=== PATIENT | male | born 1980 | race Two or more races ===

== ENCOUNTER 2024-06-20 13:13 | Outpatient (REF) | payer MEDICAID, SELFPAY ==
--- OUTSIDE RECORDS SUMMARY | 2024-06-20 14:38 | XMS_ITS | Encounter Summary ---
Author Organization [employer] Address 75 [facility] 7 [place] [address] Care Team Providers Care Bridge Expert Name Role Phone LuzHumera vega KATHRYN Primary Care Provider [phone] Reason for Visit * Reason Onset Date Comments telephone call 06/20/2024 Encounter Details Date Type Department Care Team (Late st Contact Info) Description 06/20/2024 Telephone [facility] MEDICINE [address] [place], [place] [phone] Fabricio Ruiz MD [address] [place] [address] telephone call Social History Tobacco Use Types Packs/Day Years Used Date Smoking Tobacco: Never Passive Smoke Exposure: Never Smokeless Tobacco: Never Sex and Gender Information Value Date Recorded Sex Assigned at Male 06/20/2024 9:07 AM EDT Legal Sex Male 9:29 AM EDT Gender Identity Male 06/20/2024 9:07 AM EDT Sexual Orientation Straight 06/20/2024 9: 07 AM EDT documented as of this encounter Miscellaneous Notes * Telephone Encounter - Hayley Mccoy - 06/20/2024 10:54 AM EDT Patient added to [facility] New Patient wit list as of 06/20/24. * Telephone Encounter - Ashley Estrada - 06/20/2024 10:17 AM EDT Pt walked in requesting to become a new pt. documented in this encounter Plan of Treatment Upcoming Encounters Date Type Department Care Team (Late st Contact Info) Description 09/19/2024 9:45 AM EDT Office Visit [facility] MEDICINE [address] [place] [address] Humera Espinoza NP [address] [place] [address] documented as of this encounter Visit Diagnoses Not on filedocumented in this encounter Care Teams Bridge Expert Relationship Specialty Start Date End Date Humera Espinoza NP [address] [place] [address] PCP - General Family Medicine 06/20/24 documented as of this encounter
--- OUTSIDE RECORDS SUMMARY | 2024-06-20 14:38 | XMS_ITS | Encounter Summary ---
Author Organization [employer] Address 75 [facility] 7t [place] [address] Care Team Providers Care Deliver Driver Name Role Phone Humera Espinoza NP Primary Care Provider [phone] Reason for Referral * Imaging (Routine) - Authorized Specialty Diagnoses / Procedures Referred By Contmoses t Referred To Contact Radiology Diagnoses Inguinal pain, unspecified laterality Procedures US Scrotum Humera Espinoza NP [address] [place] [address] Phone: tel: fax: [facility] [address] [place] [address] Phone: tel: fax: Referral ID Status Reason Start Date Expiration Date V isits Requested Visits Authorized [id number] Authorized 06/20/2024 06/20/2025 1 1 Reason for Visit * Reason Comments Groin Pain Encounter Details Date Type Department Care Team (Late st Contact Info) Description 06/20/2024 10:20 AM EDT Office Visit [facility] [address] [place], [place] [phone] Humera Espinoza NP [address] [place] [address] Inguinal pain, unspecified laterality (Primary Dx); Scrotal swelling; Elevated blood pressure reading Social History Tobacco Use Types Packs/Day Years Used Date Smoking Tobacco: Never Passive Smoke Exposure: Never Smokeless Tobacco: Never Tobacco Cessation:Counseling Given: Not Answered Sex and Gender Information Value Date Recorded Sex Assigned at Male 06/20/2024 9:07 AM EDT Legal Sex Male 9:29 AM EDT Gender Identity Male 06/20/2024 9:07 AM EDT Sexual Orientation Straight 06/20/2024 9: 07 AM EDT documented as of this encounter Last Filed Vital Signs Vital Sign Reading Time Taken Comments Blood Pressure 144/84 06/20/2024 10:22 AM EDT Pulse 75 06/20/2024 10:22 AM EDT Temperature 36.7 ??C (98.1 ??F) 06/20/2024 10:22 AM E DT Respiratory Rate 18 06/20/2024 10:22 AM EDT Oxygen Saturation 97% 06/20/2024 10:22 AM EDT Inhaled Oxygen Concentration - - Weight 88.9 kg (196 lb) 06/20/2024 10:22 AM EDT Height 182.9 cm (6') 06/20/2024 10:22 AM EDT Body Mass Index 26.58 06/20/2024 10:22 AM EDT documented in this encounter Progress Notes * Humera Espinoza, SCIENTIFIC DIRECTOR - 06/20/2024 10:20 AM EDT Subjective: Antonio Short is a 44 y.o. male who presents to the office for a sick visit. 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 Respiratory: Negative for apnea and chest tightness. Genitourinary: Positive for scrotal swelling and testicular pain. Negative for difficulty urinating, dysuria, penile pain and penile swelling. No Known Allergies Objective: Visit Vitals BP (!) 144/84 (BP Location: Left arm, Patient Position: Sitting, BP Cuff Size: Large adult) Pulse 75 Temp 98.1 ??F (36.7 ??C) (Temporal) Resp 18 Ht 6' (1.829 m) Wt 196 lb (88.9 kg) SpO2 97% BMI 26.58 kg/m?? Smoking Status Never BSA 2.13 m?? Physical Exam Constitutional: Appearance: Normal appearance. Cardiovascular: Rate and Rhythm: Regular rhythm. Abdominal: General: Abdomen is flat. Hernia: No hernia is present. Genitourinary: Penis: No erythema or tenderness. Testes: Left: Tenderness and swelling present. Epididymis: Left: Normal. Musculoskeletal: Cervical back: Neck supple. Neurological: Mental Status: He is alert. Assessment/Plan: Problem List Items Addressed This Visit Elevated blood pressure reading Scrotal swelling Current Assessment & Plan Suspect epididymitis or vericocele No palpable testicular masses Us ordered Gc.chl ordered Pt is able to avoid work temporarily while waiting for w/up Relevant Medications ibuprofen 600 MG tablet Inguinal pain - Primary Relevant Medications ibuprofen 600 MG tablet Other Relevant Orders US Scrotum Chlamydia/N. Gonorrhoeae RNA, TMA, Urogenitial Current Outpatient Medications Medication Sig Dispense Refill ibuprofen 600 MG tablet Take 1 tablet (600 mg) by mouth every 8 (eight) hours if needed for mild pain for up to 10 days. 30 tablet 0 No current facility-administered medications for this visit. documented in this encounter Miscellaneous Notes * Assessment & Plan Note - Humera Espinoza NP - 06/20/2024 12:24 PM EDTAssociated Problem(s): Scrotal swelling Suspect epididymitis or vericocele No palpable testicular masses Us ordered Gc.chl ordered Pt is able to avoid work temporarily while waiting for w/up documented in this encounter Plan of Treatment Upcoming Encounters Date Type Department Care Team (Late st Contact Info) Description 09/19/2024 9:45 AM EDT Office Visit [facility] MEDICINE [address] [place] [address] Humera Espinoza NP [address] [place] [address] Scheduled Orders Name Type Priority Associated Diagnoses Orde r Schedule US Scrotum Imaging Routine Inguinal pain, unspecified laterality Expected: 06/20/2024, Expires: 06/20/2025 Chlamydia/N. Gonorrhoeae RNA, TMA, Urogenitial Microbiology Routine Inguinal pain, unspecified laterality Ordered: 06/20/2024 documented as of this encounter Visit Diagnoses Diagnosis Inguinal pain, unspecified laterality- Primary Scrotal swelling Edema of male genital organs Elevated blood pressure reading Elevated blood pressure reading without diagnosis of hypertension documented in this encounter Care Teams Deliver Driver Relationship Specialty Start Date End Date Humera Espinoza NP [address] [place] [address] PCP - General Family Medicine 06/20/24 documented as of this encounter
--- OUTSIDE RECORDS SUMMARY | 2024-06-20 14:38 | XMS_ITS | Clinical Summary ---
Author Organization [employer] [facility] Address 75 [facility] 7t [place] [address] Care Team Providers Care Steel Welder Name Role Phone Humera Espinoza NP Primary Care Provider Allergies No known active allergies Medications ibuprofen 600 MG tabletIndication s:Inguinal pain, unspecified laterality,Scrot al swelling Take 1 tablet (600 mg) by mouth every 8 (eight) hours if needed for mild pain for up to 10 days. 30 tablet 06/20/2024 Active Active Problems Problem Noted Date Diagnosed Date Elevated blood pressure reading 06/20/2024 Scrotal swelling 06/20/2024 Assessment & Plan (06/20/2024 12:24 PM EDT): Suspect epididymitis or vericocele No palpable testicular masses Us ordered Gc.chl ordered Pt is able to avoid work temporarily while waiting for w/up Inguinal pain 06/20/2024 Encounters Date Type Department Care Team Description 06/20/2024 10:20 AM EDT Office Visit [facility] [address] [place] [address] Humera Espinoza NP Inguinal pain, unspecified laterality (Primary Dx); Scrotal swelling; Elevated blood pressure reading 06/20/2024 Telephone [facility] MEDICINE [address] [place] [address] Fabricio Ruiz MD telephone call 04/29/2024 Population Health Risk Score [facility] (C3) Department [address] [phone] Provider, Population Health Generic from Last 3 Months Social History Tobacco Use Types Packs/Day Years Used Date Smoking Tobacco: Never Passive Smoke Exposure: Never Smokeless Tobacco: Never Tobacco Cessation:Counseling Given: Not Answered Sex and Gender Information Value Date Recorded Sex Assigned at Male 06/20/2024 9:07 AM EDT Legal Sex Male 9:29 AM EDT Gender Identity Male 06/20/2024 9:07 AM EDT Sexual Orientation Straight 06/20/2024 9: 07 AM EDT Last Filed Vital Signs Vital Sign Reading [...] Mass Index 26.58 06/20/2024 10:22 AM EDT Plan of Treatment Upcoming Encounters Date Type Department Care Team (Late st Contact Info) Description 09/19/2024 9:45 AM EDT Office Visit [facility] MEDICINE [address] [place] [address] Humera Espinoza NP [address] [place] [address] Health Maintenance Due Date Last Done Comments Depression Screening 1982 HIV Screening 1982 Lipid Panel 1982 SDOH Screening 1982 Alcohol/Substance Use Screening 1994 Family Planning (PISQ) 1997 Hepatitis C Screening 2000 DTaP/Tdap/Td Vaccines (1 - Tdap) 2001 Hepatitis B Vaccines (1 of 3 - 19+ 3-dose series) 2001 COVID-19 Vaccine ( - 2023-2 5 season) 2023 Influenza Vaccine (#1) 2023 Tobacco Screening 06/20/2025 06/20/2024 Zoster Vaccines (1 of 2) 2032 RSV Patients and Pa tients Aged 60 years or older (1 - 1-dose 75+ series) 2057 HIB Vaccines Aged Out No longer eligi ble based on patient's age to complete this topic HPV Vaccines Aged Out No longer eligi ble based on patient's age to complete this topic Hepatitis A Vaccines Aged Out No long er eligible based on patient's age to complete this topic IPV Vaccines Aged Out No longer eligi ble based on patient's age to complete this topic Meningococcal Vaccine Aged Out No ky corey eligible based on patient's age to complete this topic Pneumococcal Vaccine: Pediat rics (0 to 5 Years) and At-Risk Patients (6 to 49) Years) Aged Out No longer elig ible based on patient's age to complete this topic RSV under 20 months Aged Out No longe r eligible based on patient's age to complete this topic Rotavirus Vaccines Aged Out No longer eligible based on patient's age to complete this topic [place] [address] [place] [address] C3 Care Teams Steel Welder Relationship Specialty Start Date End Date Humera Espinoza NP [address] [place] [address] PCP - General Family Medicine 06/20/24
== END 2024-06-20 13:14 | disposition home or self-care (01) ==
LOC: HO.HHCLNP 13:13
PROVIDERS: Visit Provider Nurse Practitioner Family
DX: Z13.89 Encounter for screening for other disorder (principal)

== ENCOUNTER 2024-06-22 08:41 | Outpatient (REF) | payer MEDICAID, SELFPAY ==
--- OUTSIDE RECORDS SUMMARY | 2024-06-22 09:02 | XMS_ITS | Encounter Summary ---
Author Organization [employer] Address 75 [facility] 7t [place] [address] Care Team Providers Care Charge Rn Name Role Phone Humera Espinoza NP Primary Care Provider [phone] Reason for Referral * Imaging (Routine) - Authorized Specialty Diagnoses / Procedures Referred By Contmoses t Referred To Contact Radiology Diagnoses Inguinal pain, unspecified laterality Procedures US Scrotum Humera Espinoza NP [address] [place] [address] Phone: tel: fax: [facility] [address] [place] [address] Phone: tel: fax: Referral ID Status Reason Start Date Expiration Date V isits Requested Visits Authorized [id number] Authorized 06/20/2024 06/20/2025 1 1 Reason for Visit * Reason Comments Groin Pain Encounter Details Date Type Department Care Team (Late st Contact Info) Description 06/20/2024 10:20 AM EDT Office Visit [facility]ALK[facility] [address] [place], [place] [phone] Humera Espinoza NP [address] [place] [address] Inguinal pain, unspecified laterality (Primary Dx); Scrotal [...] this encounter Progress Notes * Humera Espinoza, BENCH ASSEMBLER [employer]LECTRICAL - 06/20/2024 10:20 AM EDT Subjective: Antonio Short is a 44 y.o. male who presents to the office for a sick visit. 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
--- OUTSIDE RECORDS SUMMARY | 2024-06-22 09:02 | XMS_ITS | Encounter Summary ---
Author Organization [employer] Address 75 [facility] 7t [place] [address] Care Team Providers Care Animal Biologist Name Role Phone LuzHumera vega KATHRYN Primary Care Provider [phone] Reason for Visit * Reason Onset Date Comments telephone call 06/20/2024 Encounter Details Date Type Department Care Team (Late st Contact Info) Description 06/20/2024 Telephone [facility] MEDICINE [address] [place], [place] [phone] Fabricio Ruiz MD [address] [place] [address] telephone call Social History Tobacco Use Types [...] 06/20/2024 10:54 AM EDT Patient added to [facility] New Patient wit list as of 06/20/24. * Telephone Encounter - Ashley Estrada - 06/20/2024 10:17 AM EDT Pt walked in requesting to become a new pt. documented in this encounter Plan of Treatment Upcoming Encounters Date Type Department Care Team (Late st Contact Info) Description 09/19/2024 9:45 AM EDT Office Visit [facility] MEDICINE [address] [place] [address] Humera Espinoza NP [address] [place] [address] documented as of this encounter Visit Diagnoses Not on filedocumented in this encounter Care Teams Animal Biologist Relationship Specialty Start Date End Date Humera Espinoza NP [address] [place] [address] PCP - General Family Medicine 06/20/24 documented as of this encounter
--- OUTSIDE RECORDS SUMMARY | 2024-06-22 09:02 | XMS_ITS | Clinical Summary ---
Author Organization [employer] [facility] Address 75 [facility] 7t [place] [address] Care Team Providers Care Associate Chief Nurse Name Role Phone Humera Espinoza NP Primary Care Provider [phone] Allergies No known active allergies Medications ibuprofen [...] Description 06/20/2024 10:20 AM EDT Office Visit [facility] [address] [place] [address] Humera Espinoza NP Inguinal pain, unspecified laterality (Primary Dx); Scrotal swelling; Elevated blood pressure reading 06/20/2024 Telephone [facility] MEDICINE [address] [place] [address] Fabricio Ruiz MD telephone call 04/29/[address] [facility] (C3) Department [address] [phone] Provider, Population Health Generic from [...] Description 09/19/2024 9:45 AM EDT Office Visit [facility] MEDICINE [address] [place] [address] Humera Espinoza NP [address] [place] [address] Health Maintenance Due Date Last Done Comments [...] patient's age to complete this topic Insurance [place] [address] C3 Care Teams Associate Chief Nurse Relationship Specialty Start Date End Date Humera Espinoza NP [address] [place] [address] PCP - General Family Medicine 06/20/24
[2024-06-22 13:54] LABS: CT PCR NOT DETECTED (Not Detect.); NG PCR NOT DETECTED (Not Detect.)
== END 2024-06-22 08:42 | disposition home or self-care (01) ==
LOC: HO.HHCL 08:41
PROVIDERS: Visit Provider Nurse Practitioner Family
DX: R10.30 Lower abdominal pain, unspecified (principal)
CPT/HCPCS: 87491; 87591

== ENCOUNTER 2024-07-20 15:18 | Outpatient (REF) | payer MEDICAID, SELFPAY ==
--- NOTE | ~2024-07-20 | US_ITS ---
CLINICAL HISTORY: swollen left tesicle after sitting US SCROTUM WITH DOPPLER Comparison: None Findings: Right testicle normal echotexture, 4.4 x 2.2 x 3.4 cm. Left testicle normal echotexture, 4.2 x 2.9 x 3.1 cm. Color Doppler and arterial/venous spectral tracings of both testicles within normal limits. Epididymides are unremarkable. Small bilateral hydroceles. No varicoceles. IMPRESSION: 1. Small bilateral hydroceles. 2. No acute testicular torsion. 3. No acute epididymo-orchitis. 4. No suspicious mass. This document has been electronically signed by: Malissa Patel DO on 07/20/2024 17:50:53
--- OUTSIDE RECORDS SUMMARY | 2024-07-20 15:29 | XMS_ITS | Clinical Summary ---
Author Organization [employer] [facility] Address [address] [facility] 7t [place] [address] Care Team Providers Care Apprise Counselor Name Role Phone Humera Espinoza NP Primary Care Provider [phone] Allergies No known active allergies Medications ibuprofen 600 MG tabletIndication s:Inguinal pain, unspecified laterality,Scrot al swelling Take 1 tablet (600 mg) by mouth every 8 (eight) hours if needed for mild pain for up to 10 days. 30 tablet 06/20/2024 07/01/19 25 Active Problems Problem Noted Date Diagnosed Date Elevated blood pressure reading 06/20/2024 Scrotal swelling 06/20/2024 Assessment & Plan (06/20/2024 12:24 PM EDT): Suspect epididymitis or vericocele No palpable testicular masses Us ordered Gc.chl ordered Pt is able to avoid work temporarily while waiting for w/up Inguinal pain 06/20/2024 Encounters Date Type Department Care Team Description 06/29/2024 Results Follow-Up [facility] MEDICINE [address] [place] [address] Joceline Galeana [place] Chlamydia/N. Gonorrhoeae RNA, TMA, Urogenitial 06/20/2024 10:20 AM EDT Office Visit [facility]ALK[facility] [address] [place] [address] Humera Espinoza NP Inguinal pain, unspecified laterality (Primary Dx); Scrotal swelling; Elevated blood pressure reading 06/20/2024 Telephone [facility] MEDICINE [address] [place] [address] Fabricio Ruiz MD telephone call 04/29/2024 Population Health Risk Score [facility] (C3) Department [address] [address] Provider, Population Health Generic from Last 3 [...] Description 09/19/2024 9:45 AM EDT Office Visit [facility] MEDICINE [address] [place] [address] Humera Espinoza NP [address] [place] [address] Health Maintenance Due Date Last Done Comments Depression Screening 1982 HIV Screening 1982 Lipid Panel 1982 SDOH Screening 1982 Disability Screening 1982 Alcohol/Substance Use Screening 1994 Family Planning (PISQ) 1997 Hepatitis C Screening 2000 DTaP/Tdap/Td Vaccines (1 - Tdap) 2001 Hepatitis B Vaccines (1 of 3 - 19+ 3-dose series) 2001 COVID-19 Vaccine (2023-2 5 season) 2023 Influenza Vaccine (Season Ended) 2024 Tobacco Screening 06/20/2025 06/20/2024 Zoster Vaccines (1 [...] patient's age to complete this topic Meningococcal B Vaccine Aged Out No l onger eligible based on patient's age to complete [...] on patient's age to complete this topic Procedures Procedure Name Priority Date/Time Associated Diagnosis Comments CHLAMYDIA/N. GONORRHOEAE RNA, TMA, UROGENITAL Routine 06/22/2024 8:44 AM EDT Inguinal pain, unspecified laterality from Last 3 Months Results * Chlamydia/N. Gonorrhoeae RNA, TMA, Urogenitial (06/22/2024 8:44 AM EDT) Pathologist [facility] CT PCR NOT DETECTED Not Detect. [facility] Comment:A not detected test result does not exclude the possibilityof infection because test results can be affected byimproper specimen collection, concurrent antibiotic therapy,or the number of organisms in the specimen which may bebelow the sensitivity of the test. As with many diagnostictests, results from the Xpert CT/NG assay should beinterpreted in conjunction with other laboratory andclinical data available to the clinician.Xpert CT/NG performance has not been evaluated in patientsless than 14 years of age. The assay should not be used forthe evaluationof suspected sexual abuse or for other medico-legalindications. Additional testing is recommended in anycircumstance when false positive or false negative resultscould lead to adverse medical, social or psychologicalconsequences. NG PCR NOT DETECTED Not Detect. [facility] Comment:A not detected test result does not exclude the possibilityof infection because test results can be affected byimproper specimen collection, concurrent antibiotic therapy,or the number of organisms in the specimen which may bebelow the sensitivity of the test. As with many diagnostictests, results from the Xpert CT/NG assay should beinterpreted in conjunction with other laboratory andclinical data available to the clinician.Xpert CT/NG performance has not been evaluated in patientsless than 14 years of age. The assay should not be used forthe evaluationof suspected sexual abuse or for other medico-legalindications. Additional testing is recommended in anycircumstance when false positive or false negative resultscould lead to adverse medical, social or psychologicalconsequences. Urine (Urine, Random) 06/22/2024 8:44 AM EDT 06/22/2024 10:53 AM EDT Narrative [facility] - 06/22/2024 1:55 PM EDT Urine us Humera Espinoza REHABILITATION CONSULTANT LAB MICROBIOLOGY - GENERAL ORDER KEEGAN Final Result [facility] [address] [place] [address] [phone] from Last 3 Months [facility] [employer] C[facility] Care Teams Apprise Counselor Relationship Specialty Start Date End Date Humera Espinoza NP [address] [place] [address] PCP - General Family Medicine 06/20/24
== END 2024-07-20 15:19 | disposition home or self-care (01) ==
LOC: HO.US 15:18
PROVIDERS: PCP Nurse Practitioner Family; Visit Provider Nurse Practitioner Family
DX: R10.30 Lower abdominal pain, unspecified (principal)
CPT/HCPCS: 76870

== ENCOUNTER → 2024-07-20 15:27 | Outpatient (BNV) | payer MEDICAID, SELFPAY | PROVIDERS: PCP Nurse Practitioner Family; Visit Provider Radiology Diagnostic Radiology | DX: N43.3 Hydrocele, unspecified (principal) | CPT/HCPCS: 76870 ==

== ENCOUNTER 2024-11-14 10:35 | Outpatient (REF) | payer MEDICAID, SELFPAY ==
--- OUTSIDE RECORDS SUMMARY | 2024-11-14 10:15 | XMS_ITS | Encounter Summary ---
Author Organization [employer] Address [address] [place] [address] Care Team Providers Care Instructional Technology Coach Name Role Phone Humera Espinoza NP Primary Care Provider [phone] Encounter Details Date Type Department Care Team (Late st Contact Info) Description 11/14/2024 10:15 AM EDT Office Visit [facility] [address] [place], [place] [phone] Humera Espinoza NP [address] [place], [place] [phone] Primary hypertension (Primary Dx) Social History Tobacco Use Types Packs/Day Years Used Date Smoking Tobacco: Never Passive Smoke Exposure: Never Smokeless Tobacco: Never Alcohol Answer Date Recorded How often do you have a drink containing alcohol ? 2 09/19/2024 How many drinks containing a lcohol do you have on a typical day when you are drinking? 1 09/19/2024 Frequency of Binge Drinking Not on file 05/2024 Depression Answer Date Recorded Patient Health Questionnaire-9 Score 0 09/19/2024 Patient Health Questionnaire-9 Score 0 09/19/2024 Last PHQ-9: Questionnaire Data Not on file 0 09/19/2024 Housing Stability Answer Date Recorded What is your housing situation today? I do not have housing (Staying with others, in a hotel, in a intermediate, living outside on the street, on a beach, in a car, or in a park 09/19/[address] you li ve. Do you have problems with any of the following? None of the above 09/19/2024 Food Insecurity Answer Date Recorded Within the past 12 months, y ou worried that your food would run out before you got money to buy more: Sometimes True 2024 Within the past 12 months,th e food you bought just didn't last and you didn't have enough money to get more: Sometimes True 09/19/2024 Transportation Answer Date Recorded In the past 12 months, has l ack of transportation kept you from medical appts, meetings, work or from getting things needed for daily living? No 09/19/2024 Utilities Answer Date Recorded In the past 12 months, has t he electric, gas, oil or water company threatened to shut off services in your home? No 09/19/2024 Depression Answer Date Recorded Patient Health Questionnaire-2 Score 0 09/19/2024 Internet Access Answer Date Recorded Internet Access Q1 I am not sure 09/19/2024 Internet Access Q2 Not on file 09/19/2024 Sex and Gender Information Value Date Recorded Sex Assigned at Male 06/20/2024 9:07 AM EDT Legal Sex Male 9:29 AM EDT Gender Identity Male 06/20/2024 9:07 AM EDT Sexual Orientation Straight 06/20/2024 9: 07 AM EDT documented as of this encounter Last Filed Vital Signs Vital Sign Reading Time Taken Comments Blood Pressure 140/86 11/14/2024 10:11 AM EDT Pulse 89 11/14/2024 10:11 AM EDT Temperature 36 C (96.8 F) 11/14/2024 10:11 AM EDT Respiratory Rate 16 11/14/2024 10:1 1 AM EDT Oxygen Saturation 97% 11/14/2024 10: 11 AM EDT Inhaled Oxygen Concentration - - Weight 85.6 kg (188 lb 12.8 oz) 025 10:11 AM EDT Height 180.3 cm (5' 11 ) 11/14/2024 10: 11 AM EDT Body Mass Index 26.33 11/14/2024 10:11 AM EDT documented in this encounter Miscellaneous Notes * Assessment & Plan Note - Humera Espinoza NP - 11/14/2024 10:15 AM EDTAssociated Problem(s): Primary hypertension Orders: Lipid Panel, Standard; Future Comprehensive Metabolic Panel; Future Hemoglobin A1c; Future documented in this encounter Plan of Treatment Scheduled Orders Name Type Priority Associated Diagnoses Orde r Schedule Lipid Panel, Standard Lab Routine Primary hypertension Expected: 11/14/2024 (Approximate), Expires: 11/14/2025 Comprehensive Metabolic Panel Lab Routine Primary hypertension Expected: 11/14/2024 (Approximate), Expires: 11/14/2025 documented as of this encounter Procedures Procedure Name Priority Date/Time Associated Diagnosis Comments HEMOGLOBIN A1C Routine 11/14/2024 10:38 AM EDT Primary hypertension documented in this encounter Results * Hemoglobin A1c (11/14/2024 10:38 AM EDT) Hemoglobin A1c 5.3 <6.0 % [facility] Comment:Hemoglobin A1C Refer ence Range Adults: 4.8 - 6.0 % Non diabetic: < 6.0 % Goal: < 7.0 %Additional Action Suggested: > 8.0 %Note: Hemoglobin A1c results are invalid for patients with abnormal amounts of HbF. Blood transfusions may impact the HbA1c concentration in the patient sample. Estimated Average Glucose 105 mg/dL [facility] Comment:eAG = Estimated ave rage glucose which is %A1C expressed asaverage glucose, using the formula of the J4J-IzyvjkgJmwlmov Glucose study (ADAG), Diabetes Care, Vol.31,#8,Aug. 2007 Blood Venous blood specimen / Unknown 11/14/2024 10:38 AM EDT 11/14/2024 11:13 AM EDT us Humera Espinoza NP LAB BLOOD ORDERABLES Final Resul t [facility] [address] [place] [phone] [phone] documented in this encounter Visit Diagnoses Diagnosis Primary hypertension- Primary Unspecified essential hypertension documented in this encounter Additional Health Concerns Assessment Noted Time PHQ-9 Depression Total Score: 0 09/20/19 25 10:17 AM EDT documented as of this encounter Care Teams Instructional Technology Coach Relationship Specialty Start Date End Date Humera Espinoza NP [address] [place] [address] PCP - General Family Medicine 06/20/24 documented as of this encounter
--- OUTSIDE RECORDS SUMMARY | 2024-11-14 11:52 | XMS_ITS | Encounter Summary ---
Author Organization [employer] Address [address] [facility] [address] [place] [address] Care Team Providers Care Plumber Cub Name Role Phone Humera Espinoza NP Primary Care Provider [phone] Reason for Visit * Reason Onset Date Comments chart prep 11/11/2024 Encounter Details Date Type Department Care Team (Late st Contact Info) Description 11/11/2024 Telephone [facility] [address] [place] [address] Jayne Baldwin MA chart prep Social History Tobacco Use Types Packs/Day Years [...] with others, in a hotel, in a fpc, living outside on the street, on a [...] encounter Miscellaneous Notes * Telephone Encounter - Jayne Baldwin MA - 11/11/2024 2:30 PM EDT Chart Prep Labs: done Images: done Referrals: complete Thu07/20/24 3:30 PM [facility] Vaccines due: Covid, Flu, Tdap, Hep B, Td, HPV, and DTAP Screenings: not applicable Overdue care gaps: Not applicable documented in this encounter Plan of Treatment Not on file documented as of this encounter Visit Diagnoses Not on filedocumented in this encounter Additional Health Concerns Assessment Noted Time PHQ-9 Depression Total Score: 0 09/20/19 10:17 AM EDT documented as of this encounter Care Teams Plumber Cub Relationship Specialty Start Date End Date Humera Espinoza NP [address] [place] [address] PCP - General Family Medicine 06/20/24 documented as of this encounter
--- OUTSIDE RECORDS SUMMARY | 2024-11-14 11:52 | XMS_ITS | Encounter Summary ---
Author Organization [employer] Address [address] [facility] [address] [place] [address] Care Team Providers Care Vb Net Developer Name Role Phone LuzHumera vega KATHRYN Primary Care Provider [phone] Encounter Details Date Type Department Care Team (Latest Contact Info) Description 11/14/2024 Travel Social History Tobacco Use Types Packs/Day Years [...] with others, in a hotel, in a nursing home, living outside on the street, on a [...] AM EDT documented as of this encounter Plan of Treatment Not on file documented as of this encounter Visit Diagnoses Not on filedocumented in this encounter Additional Health Concerns Assessment Noted Time PHQ-9 Depression Total Score: 0 09/20/19 10:17 AM EDT documented as of this encounter Care Teams Vb Net Developer Relationship Specialty Start Date End Date Humera Espinoza NP [address] [place] [id number] PCP - General Family Medicine 06/20/24 documented as of this encounter
--- OUTSIDE RECORDS SUMMARY | 2024-11-14 11:52 | XMS_ITS | Encounter Summary ---
Author Organization [employer] Address [address] [facility] [address] [place] [address] Care Team Providers Care Lathe Operator Contact Lens Name Role Phone LuzHumera vega KATHRYN Primary Care Provider [phone] Encounter Details Date Type Department Care Team (Latest Contact Info) Description 11/13/2024 Travel Social History Tobacco Use Types Packs/Day [...] with others, in a hotel, in a alf, living outside on the street, on a [...] documented as of this encounter Care Teams Lathe Operator Contact Lens Relationship Specialty Start Date End Date Humera Espinoza NP [address] [place] [phone] PCP - General Family Medicine 06/20/24 documented as of this encounter
--- OUTSIDE RECORDS SUMMARY | 2024-11-14 11:52 | XMS_ITS | Clinical Summary ---
Author Organization [employer] Address [address] [place] [address] Care Team Providers Care Bowling Ball Mold Assembler Name Role Phone Luzgary Humera KATHRYN Primary Care Provider [phone] Allergies No known active allergies Medications lisinopril 10 MG tablet Take 1 tablet (10 mg) by mouth Once per day. 30 tablet 3 09/19/2024 09/20/19 26 Active Blood Pressure kitIndications:Pr imary hypertension 1 kit Once per day. 1 kit 10/20/2024 Active Active Problems Problem Noted Date Diagnosed Date Healthcare maintenance 09/19/2024 Exercise counseling 09/19/2024 Dietary counseling 09/19/2024 Assessment & Plan (09/19/2024 10:18 AM EDT): Dietary Recommendations: Fruits, vegetables, whole grains, protein foods, and fat-free or low-fat dairy products are healthy choices. Eat different types of protein foods in your diet. This can include seafood, lean meats, poultry, beans, peas, lentils, nuts, seeds, soy products, and eggs. Limit foods and beverages higher in added sugars, saturated fat, and sodium. Exercise Recommendations: At least 150 minutes of moderate-intensity physical activity per week, or an equivalent combination of moderate- and vigorous-intensity activity Primary hypertension 09/19/2024 Assessment & Plan (11/14/2024 10:46 AM EDT): Orders: Lipid Panel, Standard; Future Comprehensive Metabolic Panel; Future Hemoglobin A1c; Future Assessment & Plan (09/19/2024 10:19 AM EDT): Two readings above goal and home measurements have also been elevated Initiate lisinopril 10 mg Return to clinic in 2 months for repeat bp Elevated blood pressure reading 06/20/2024 Scrotal swelling 06/20/2024 Assessment & Plan (06/20/2024 12:24 PM EDT): Suspect epididymitis or vericocele No palpable testicular masses Us ordered Gc.chl ordered Pt is able to avoid work temporarily while waiting for w/up Inguinal pain 06/20/2024 Encounters Date Type Department Care Team Description 11/14/2024 10:15 AM EDT Office Visit [address] [address] Humera Espinoza NP Primary hypertension (Primary Dx) 11/14/2024 Travel 11/13/2024 Travel 11/11/[address] [address] Jayne Baldwin MA chart prep 10/18/[address] [address] Humera Espinoza NP Medication Question 09/19/2024 9:45 AM EDT Office Visit [address] [address] Humera Espinoza NP Elevated blood pressure reading (Primary Dx); Dietary counseling; Exercise counseling; Healthcare maintenance; Primary hypertension 09/19/2024 Travel 09/16/[address] [address] Joceline Galeana MA Chart Prep from Last 3 Months Family History Medical History Relation Name Comments htn Mother Relation Name Status Comments Mother Social History Tobacco Use Types Packs/Day Years Used Date Smoking Tobacco: Never Passive Smoke Exposure: Never Smokeless Tobacco: Never Tobacco Cessation:Counseling Given: Not Answered Alcohol Answer Date Recorded How often do [...] Mass Index 26.33 11/14/2024 10:11 AM EDT Plan of Treatment Health Maintenance Due Date Last Done Comments HIV Screening 1982 Lipid Panel 1982 Family Planning (PISQ) 1997 HPV Vaccines (1 - Male 3-dos e series) 1997 Hepatitis C Screening 2000 DTaP/Tdap/Td Vaccines (1 - Tdap) 2001 Hepatitis B Vaccines (1 of 3 - 19+ 3-dose series) 2001 COVID-19 Vaccine (1 - 2023-2 5 season) 2024 Influenza Vaccine (#1) 2024 Alcohol/Substance Use Screening 09/19/2025 09/19/2024 Depression Screening 09/19/2025 09/19/2024, 09/19/2024 SDOH Screening 09/19/2025 09/19/2024 Disability Screening 11/13/2025 11/13/2024 Tobacco Screening 11/14/2025 11/14/2024 Zoster Vaccines (1 of 2) 2032 RSV Patients and Patients Aged 60 years or older (1 - [...] age to complete this topic Pneumococcal Vaccine: Pediatrics (0 to 5 Years) and At-Risk Patients (6 to 49) Years Aged Out No longer eligible b ased on patient's age to complete this topic RSV under 20 months Aged Out No longe r eligible based on patient's age to complete this topic Rotavirus Vaccines Aged Out No longer eligible based on patient's age to complete this topic Procedures Procedure Name Priority Date/Time Associated Diagnosis Comments HEMOGLOBIN A1C Routine 11/14/2024 10:38 AM EDT Primary hypertension from Last 3 Months Results * Hemoglobin A1c (11/14/2024 10:38 AM EDT) Hemoglobin A1c 5.3 <6.0 % [facility] Comment:Hemoglobin A1C Refer ence Range Adults: 4.8 - 6.0 % Non diabetic: < 6.0 % Goal: < 7.0 %Additional Action Suggested: > 8.0 %Note: Hemoglobin A1c results are invalid for patients with abnormal amounts of HbF. Blood transfusions may impact the HbA1c concentration in the patient sample. Estimated Average Glucose 105 mg/dL [facility] Comment:eAG = Estimated ave rage glucose which is %A1C expressed asaverage glucose, using the formula of the A8M-LpxtpggKubnbpr Glucose study (ADAG), Diabetes Care, Vol.31,#8,2007 Blood Venous blood specimen / Unknown 11/14/2024 10:38 AM EDT 11/14/2024 11:13 AM EDT us Humera Espinoza NP LAB BLOOD ORDERABLES Final Resul t [facility] [address] [place] [phone] from Last 3 Months Insurance [facility] C3 Care Teams Bowling Ball Mold Assembler Relationship Specialty Start Date End Date Humera Espinoza NP [address] [place] [phone] PCP - General Family Medicine 06/20/24
[2024-11-14 12:33] LABS: Alanine Aminotransferase 47 U/L (0-40); Albumin Level 5.0 g/dL (3.5-5.0); Alkaline Phosphatase 64 U/L (39-117); Anion Gap 11 (12-20); Aspartate Amino Transferase 25 U/L (5-37); Blood Urea Nitrogen 14 mg/dL (9-16); Calcium 9.7 mg/dL (8.4-10.2); Carbon Dioxide 29 mmol/L (22-29); Chloride 105 mmol/L (96-108); Cholesterol 172 mg/dL (<200); Estimated Glomerular Filt Rate > 60; HDL Cholesterol 37 mg/dL (>40); Potassium 4.3 mmol/L (3.3-5.1); Sodium 141 mmol/L (135-145); Total Protein 8.1 g/dL (6.5-8.0); Triglycerides 191 mg/dL (<150)
== END 2024-11-14 10:36 | disposition home or self-care (01) ==
LOC: HO.HHCL 10:35
PROVIDERS: PCP Nurse Practitioner Family; Visit Provider Nurse Practitioner Family
DX: I10 Essential (primary) hypertension (principal)
CPT/HCPCS: 36415; 80053; 80061; 83036

== ENCOUNTER 2025-02-01 12:53 | Outpatient (AMB) | payer MEDICAID, SELFPAY ==
--- NOTE | 2025-02-01 12:55 | MHC.OFFVIS ---
Intake Visit Reasons: scrotal pain/ hydrocele/UA(SET) Intake Note: Patient is present for SCROTAL PAIN/HYDROCELE/UA/PVR Urology Medication:NONE Antibiotic Allergy:NONE Blood Thinner:NONE TODAY'S PVR:0ML'S Automatic Pattern Edger Required: No Allergies No Known Allergies Allergy (Verified 02/01/25 13:19) Medication List - Last Reconciled 02/01/25 by RICHARD Avila No Known Home Meds HPI Comments Details: Antonio is a very pleasant 44-year-old male patient of Dr. Espinoza. He presents to the office today as a new patient for small bilateral hydroceles. In discussion with the patient today he reports approximately 6 months ago he had followed up with his PCP as he had been experiencing bilateral testicular discomfort right side greater than left. He reports shortly after his PCP visit pain has since subsided. He denies any associated nausea or vomiting. He denies any previous trauma. In review of patient's chart it does appear scrotal ultrasound was ordered and performed. These results were reviewed and communicated with the patient today. 08/10 small bilateral hydroceles, no acute testicular torsion, no acute epididymo-orchitis or suspicious masses noted per radiology report. Physical assessment was offered however deferred. We did discussed potential causes of testicular/scrotal discomfort he had been experiencing. We also discussed hydroceles. He denies any bothersome urinary issues. He denies urinary urgency, urinary frequency, incontinence, nocturia, hematuria, dysuria, foul smelling urine, changes to urinary stream, flank pain, fever, and or chills. He is happy with his current voiding parameters. In office urinalysis results with the patient today. All questions were answered. He otherwise offers no other issues or concerns at this time. Review of Systems Const All systems reviewed & are unremarkable except as noted in HPI and below Physical Exam Const General: cooperative, healthy appearing, comfortable, no acute distress, well developed, alert and awake Nutritional Appearance: average body habitus Orientation/consciousness: patient oriented x3 Limitations: no limitations HEENT Head: Yes normal to inspection, Yes normocephalic and Yes atraumatic Ears: hearing grossly normal bilaterally Eyes General: appearance normal, both eyes and all related structures Neck Neck: Yes normal visual inspection and Yes trachea midline Chest Chest palpation & inspection: normal inspection of the chest Resp Effort & Inspection: normal respiratory effort and able to speak in complete sentences Cardio Rate: regular rate GI Inspection: Yes normal to inspection General: Yes no CVA tenderness Back/Spine/Pelvis Back: no CVA tenderness Skin General skin exam: no rashes or lesions noted Neuro General: patient oriented x3 Extrem General: Yes normal to inspection Psych Appearance: grossly normal and well kempt Mental Status: mental status grossly normal Speech and movement: Normal speech and movement present and Clear speech present Affect: normal affect Attitude: cooperative Thought process: Normal thought process present Thought content: Normal thought content present Insight: Fair insight present (Psych) Judgement: Fair judgement present (Psych) Office Procedures Post Void Residual Post Residual Void Post Void Residual (PVR): 0 [id number]-[id number] Void Residual by ultrasound Results AMB Urinalysis, Automated UA Leukoctes 0 Paul/uL Last Edit by JACK Hester on 02/01/25 13:10 UA Nitrite Negative Last Edit by JACK Hester on 02/01/25 13:10 UA Urobilinogen 0.2 mg/dL Last Edit by JACK Hester on 02/01/25 13:10 UA Protein 0 mg/dL Last Edit by Lawson Murrell CCM on 02/01/25 13:10 UA pH 6.0 Last Edit by JACK Hester on 02/01/25 13:10 UA Blood 0 Christopher/uL Last Edit by JACK Hester on 02/01/25 13:10 UA Specific [place] 1.015 Last Edit by JACK Hester on 02/01/25 13:10 UA Ketone Negative Last Edit by JACK Hester on 02/01/25 13:10 UA Bilirubin 0 mg/dL Last Edit by JACK Hester on 02/01/25 13:10 UA Glucose 0 mg/dL Last Edit by JACK Hester on 02/01/25 13:10 Results Reviewed Results Reviewed: Date of Service: 07/20/24 Procedure(s): US scrotum Findings: Right testicle normal echotexture, 4.4 x 2.2 x 3.4 cm. Left testicle normal echotexture, 4.2 x 2.9 x 3.1 cm. Color Doppler and arterial/venous spectral tracings of both testicles within normal limits. Epididymides are unremarkable. Small bilateral hydroceles. No varicoceles. IMPRESSION: 1. Small bilateral hydroceles. 2. No acute testicular torsion. 3. No acute epididymo-orchitis. 4. No suspicious mass. Assessment & Plan Assessment & Plan (1) Bilateral hydrocele: Code(s): N43.3 - Hydrocele, unspecified Category: Medical Plan In office urinalysis results with the patient today; as noted above. PVR 0 mL Most recent scrotal imaging results with the patient today; as noted above. All questions were answered. He currently denies any bothersome urinary issues or concerns. He reports be happy with current voiding parameters. We did discussed potential causes of scrotal discomfort he had been experiencing We also discussed hydroceles We discussed PRN follow-up verses scheduled surveillance monitoring. He would like to proceed with scheduled follow-up. Follow-up in 6 months; or sooner with any issues, concerns, and or questions. Orders: Orders AMB Urinalysis Automated Today Z13.9 - Encounter for screening, unspecified Patient Instructions: The patient had an opportunity to ask questions regarding the treatment plan. All questions were answered. Physical exam, labs, and imaging were discussed and reviewed in detail. As well as risks, benefits, and discussion of treatment choices. No major barriers to understanding were identified. The patient expressed understanding and agreement with the above treatment plan. The patient was made aware they should contact our office by phone for worsening of their current condition, the appearance of new symptoms, or with any questions or concerns. Compliance is encouraged with any medications and follow up testing that is ordered. It is a privilege to be allowed the opportunity to participate in? your urological care.? Again, if you have any questions or concerns If you have any questions or concerns please do not hesitate to contact me. The office is [phone]. This note is constructed using voice recognition software. While every effort has been made to ensure accuracy landcare officer errors may have been included. Yours sincerely, RICHARD Avila Coding Level of Care Code New Pt Level 3 (42859) Diagnoses Bilateral hydrocele N43.3 CPT Codes Post Residual Void - PVR CPT Code: 51123-Pthd Void Residual by ultrasound ([id number])
--- OUTSIDE RECORDS SUMMARY | 2025-02-01 16:57 | XMS_ITS | Clinical Summary ---
Author Organization [employer] Address [address] [facility] [address] [place] [address] Care Team Providers Care Amphibious Operations Officer Name Role Phone LuzHumera vega KATHRYN Primary Care Provider [phone] Allergies No known active allergies Medications Blood Pressure kitIndications:P rimary hypertension 1 kit Once per day. 1 kit 5 Active lisinopril 10 MG tablet TAKE 1 TABLET BY MOUTH ONCE PER DAY. 90 tablet 1 Active lisinopril 10 MG tablet Take 1 tablet (10 mg) by mouth Once per day. 30 tablet 3 5 025 Discontinued Active Problems Problem Noted Date Diagnosed Date [...] Primary hypertension 09/19/2024 Assessment & Plan (11/14/2024 5:09 PM EDT): Orders: Lipid Panel, Standard; Future Comprehensive [...] Encounters Date Type Department Care Team Description 01/19/[address] [facility] [address] [place] [phone] Humera Espinoza NP 12/01/2024 9:00 AM EDT Office Visit [facility] [address] [place] [phone] Aurelio Beyer MD Chest wall pain (Primary Dx) 12/01/2024 Travel 11/14/2024 10:15 AM EDT Office Visit [facility] [address] [place] [phone] Humera Espinoza NP Primary hypertension (Primary Dx) 11/14/2024 Travel 11/13/2024 Travel 11/11/[address] [facility] [address] [place] [phone] Jayne Baldwin MA chart prep from Last 3 Months Family History Medical [...] with others, in a hotel, in a long term, living outside on the street, on a [...] Sign Reading Time Taken Comments Blood Pressure 125/84 12/01/2024 9:08 AM EDT Pulse 78 12/01/2024 9:08 AM EDT Temperature 36 C (96.8 F) 11/14/2024 10:11 AM EDT Respiratory Rate 16 12/01/2024 9:08 AM EDT Oxygen Saturation 100% 12/01/2024 9:08 AM EDT room air Inhaled Oxygen Concentration - - Weight 85.6 kg (188 lb 12.8 oz) 025 10:11 AM EDT Height 180.3 cm (5' 11 ) 11/14/2024 10: 11 AM EDT Body Mass Index 26.33 11/14/2024 10:11 AM EDT Plan of Treatment Health Maintenance Due Date Last Done Comments HIV Screening 1982 Family Planning (PISQ) 1997 HPV Vaccines (1 - Male 3-dos e series) 1997 Hepatitis C Screening 2000 DTaP/Tdap/Td Vaccines (1 - Tdap) 2001 Hepatitis B Vaccines (1 of 3 - 19+ 3-dose series) 2001 COVID-19 Vaccine (1 - 2024-2 6 season) 2024 Influenza Vaccine (#1) 2024 Alcohol/Substance Use Screening 09/19/2025 09/19/2024 Depression Screening 09/19/2025 09/19/2024, 09/19/2024 SDOH Screening 09/19/2025 09/19/2024 Disability Screening 11/13/2025 11/13/2024 Tobacco Screening 11/14/2025 11/14/2024 Lipid Panel 11/14/2029 11/14/2024 Zoster Vaccines (1 of 2) 2032 [...] Procedure Name Priority Date/Time Associated Diagnosis Comments ECG 12-LEAD Routine 12/01/2024 12:03 PM EDT Chest wall pain HEMOGLOBIN A1C Routine 11/14/2024 10:38 AM EDT Primary hypertension COMPREHENSIVE METABOLIC PANEL Routine 11/14/2024 10:38 AM EDT Primary hypertension LIPID PANEL, STANDARD Routine 11/14/2024 10:38 AM EDT Primary hypertension from Last 3 Months Results * ECG 12 lead (12/01/2024 12:03 PM EDT) Narrative Aurelio Beyer MD - 12/01/2024 12:03 PM EDT NSR 76, no arrhythmia, no ST-T changes, no Q-waves us Aurelio Beyer MD ECG ORDERABLES Final Result * Hemoglobin A1c (11/14/2024 10:38 AM EDT) Hemoglobin A1c 5.3 <6.0 % [facility] Comment:Hemoglobin A1C Refer ence Range Adults: 4.8 - 6.0 % Non diabetic: < 6.0 % Goal: < 7.0 %Additional Action Suggested: > 8.0 %Note: Hemoglobin A1c results are invalid for patients with abnormal amounts of HbF. Blood transfusions may impact the HbA1c concentration in the patient sample. Estimated Average Glucose 105 mg/dL [facility] Comment:eAG = Estimated ave rage glucose which is %A1C expressed asaverage glucose, using the formula of the A5J-AwnlnloOywemva Glucose study (ADAG), Diabetes Care, Vol.31,#8,Sep. 2007 Blood Venous blood specimen / Unknown 11/14/2024 10:38 AM EDT 11/14/2024 11:13 AM EDT us Humera Espinoza NP LAB BLOOD ORDERABLES Final Resul t [facility] [address] [place] [phone] * (ABNORMAL) Lipid Panel, Standard (11/14/2024 10:38 AM EDT) Triglycerides 191(H) <150 mg/dL [facility] Comment:Desirable Triglyceri de: less than 150 mg/dLBorderline High Triglyceride 150-199 mg/dLHigh Triglyceride: 200-499 mg/dLVery High Triglyceride: greater than or equal to 5OO mg/dL Cholesterol 172 <200 mg/dL [facility] Comment:Desirable Cholestero l: less than 200 mg/dLBorderline High Cholesterol: 200-239 mg/dLHigh Cholesterol: greater than 239 mg/dL LDL Cholesterol Calculated 97 <100 mg/dL [facility] Comment:Desirable LDL: less than 100 mg/dLNear Optimal/Above Optimal LDL: 110- 129 mg/dLBorderline High LDL: 130-159 mg/dLHigh LDL: 160-189 mg/dLVery High LDL: greater than or equal to 190 mg/dL HDL Cholesterol 37(L) >40 mg/dL [facility] Comment:Desirable HDL: great er than 40 mg/dL Note: This HDL assay may give artificially low results in patients with liver disease. Blood Venous blood specimen / Unknown 11/14/2024 10:38 AM EDT 11/14/2024 11:05 AM EDT us Humera Espinoza [employer] LAB BLOOD ORDERABLES Final Resul t [facility] [address] [place], [place] [phone] * (ABNORMAL) Comprehensive Metabolic Panel (11/14/2024 10:38 AM EDT) Sodium 141 135 - 145 mmol/L [facility] Potassium 4.3 3.3 - 5.1 mmol/L [facility] Chloride 105 96 - 108 mmol/L [facility] Carbon Dioxide 29 22 - 29 mmol/L [facility] Anion Gap 11(L) 12 - 20 [facility] Urea Nitrogen (BUN) 14 9 - 16 mg/dL [facility] Creatinine, Serum 1.14 0.5 - 1.4 mg/dL [facility] Estimated Glomerular Filt Rate >60 [facility] Comment:Chronic Kidney Disea se: Estimated GFR < 60 mL/min/[id number] Kidney Disease: Estimated GFR < 15 mL/min/1.73m2 Glucose 88 60 - 115 mg/dL [facility] Calcium 9.7 8.4 - 10.2 mg/dL [facility] Bilirubin, Total 0.5 0.0 - 1.0 mg/dL [facility] Aspartate Amino Transferase 25 5 - 37 U/L [facility] Alanine Aminotransferase 47(H) 0 - 40 U/L [facility] Total Protein 8.1(H) 6.5 - 8.0 g/dL [facility] Albumin Level 5.0 3.5 - 5.0 g/dL [facility] Alkaline Phosphatase 64 39 - 117 U/L [facility] Blood Venous blood specimen / Unknown 11/14/2024 10:38 AM EDT 11/14/2024 11:05 AM EDT us Humera Espinoza [employer] LAB BLOOD ORDERABLES Final Resul t [facility] [address] [place] [phone] from Last 3 Months Insurance [facility] C3 Care Teams Amphibious Operations Officer Relationship Specialty Start Date End Date Humera Espinoza NP [address] [place] [phone] PCP - General Family Medicine 06/20/24
== END 2025-02-01 13:24 | disposition home or self-care (01) ==
LOC: HO.HUSH 12:54
PROVIDERS: PCP Nurse Practitioner Family; Visit Provider Nurse Practitioner Family
DX: Z13.9 Encounter for screening, unspecified (principal); N43.3 Hydrocele, unspecified
CPT/HCPCS: 99203

== ENCOUNTER → 2025-02-01 12:53 | Outpatient (BNVA) | payer MEDICAID, SELFPAY | PROVIDERS: PCP Nurse Practitioner Family; Visit Provider Nurse Practitioner Family | DX: N43.3 Hydrocele, unspecified (principal); Z13.89 Encounter for screening for other disorder | CPT/HCPCS: 51798; 81003; 99212 ==